=== PATIENT | male | born 1975 | race Two or more races ===

== ENCOUNTER → 2018-02-28 | Emergency (ER) | payer OTHER ==
[~2018-02-28] VITALS: Ht 190.5 cm; Wt 116.6 kg
[~2018-02-28] MED LIST: TUSSI PRES-B L120 M1 PO; ZITHROMAX TRI-500 MG PO
== END | disposition home or self-care (01) ==
LOC: ER 19:13
DX: J06.9 Acute upper respiratory infection, unspecified (principal); J32.8 Other chronic sinusitis